=== PATIENT | male | born 1960 | race African-American/Black ===

== ENCOUNTER 2021-03-26 04:01 | Emergency (ER) | payer OTHER ==
[~2021-03-26] VITALS: Ht 170.2 cm; Wt 75.0 kg
--- NOTE | 2021-03-26 05:27 | ED.ADGEN ---
Past Medical History Additional Past Medical Histor: Hernia Past Surgical History: No Surgical History Smoking Status: Current Every Day Smoker Alcohol Use: Rarely Drug Use: Marijuana General Adult EDM: Chief Complaint: ABDOMINAL PAIN HPI: HPI: Patient is a 60 year old male presenting with right inguinal swelling and pain. Patient states going on for the past year or comes and goes out. Patient is concerned that it could be cancerous. Dates he has light heavy boxes at work. Was seen at yesterday and tested for Covid due to congestion. Review of Systems: Review of Systems: All other systems within normal limits except for as noted in the HPI Current Medications: Current Medications Medications (Trade) Dose Ordered Sig/Simba Start Time Stop Time Status Last Admin Dose Admin Info (CONTRAST GIVEN -- Rx MONITORING) 1 each PRN DAILY PRN 03/26/21 06:30 03/28/21 06:29 Iohexol (Omnipaque 300 Mg/ml) 75 ml 1X ONCE 03/26/21 06:30 03/26/21 06:31 DC 03/26/21 06:30 75 ML Allergies: Allergies: Allergies Coded Allergies Type Severity Reaction Last Updated Verified No Known Drug Allergies 07/29/13 No Physical Exam: PE: Constitutional: Well developed, well nourished, no acute distress, non-toxic appearance. [] HENT: Normocephalic, atraumatic, bilateral external ears normal, nose normal. [] Eyes: PERRLA, conjunctiva normal, no discharge. [] Neck: No rigidity, supple, no stridor. [] Cardiovascular: Regular rate and rhythm, brisk cap refill [] Lungs & Thorax: Non labored symmetric respirations, no tachypnea or respiratory distress [] Abdomen: Soft, nondistended, right inguinal mass, no surrounding erythema, nonreducible. Skin: Warm, dry, no erythema, no rash. [] Back: Unremarkable Extremities: No deformities, range of motion grossly intact, no lower extremity edema [] Neurologic: Alert and oriented X 3, no focal deficits noted. [] Psychologic: Affect normal, judgement normal, mood normal. [] Constitutional: Well developed, well nourished, no acute distress, non-toxic appearance HENT: Normocephalic, atraumatic Eyes: Conjunctiva normal, no discharge Neck: Normal range of motion, supple Lungs & Thorax: No respiratory distress, equal chest rise and fall Abdomen: Soft, no tenderness, right inguinal fullness noted Skin: Warm, dry, no erythema, no rash Extremities: No tenderness, ROM intact, no edema Neurologic: Alert and oriented X 3, no focal deficits noted Psychologic: Affect normal, judgment normal Current Patient Data: Labs: Laboratory Tests Test 03/26/21 05:50 White Blood Count 5.2 x10^3/uL (4.0-11.0) Red Blood Count 6.16 x10^6/uL (4.30-5.70) H Hemoglobin 13.4 g/dL (13.0-17.5) Hematocrit 43.0 % (39.0-53.0) Mean Corpuscular Volume 70 fL (79-100) L Mean Corpuscular Hemoglobin 22 pg (25-35) L Mean Corpuscular Hemoglobin Concent 31 g/dL (31-37) Red Cell Distribution Width 15.2 % (11.5-14.5) H Platelet Count 194 x10^3/uL (140-400) Neutrophils (%) (Auto) 57 % (31-73) Lymphocytes (%) (Auto) 27 % (24-48) Monocytes (%) (Auto) 12 % (0-9) H Eosinophils (%) (Auto) 4 % (0-3) H Basophils (%) (Auto) 0 % (0-3) Neutrophils # (Auto) 2.9 x10^3/uL (1.8-7.7) Lymphocytes # (Auto) 1.4 x10^3/uL (1.0-4.8) Monocytes # (Auto) 0.6 x10^3/uL (0.0-1.1) Eosinophils # (Auto) 0.2 x10^3/uL (0.0-0.7) Basophils # (Auto) 0.0 x10^3/uL (0.0-0.2) Platelet Estimate Pending Sodium Level 146 mmol/L (136-145) H Potassium Level 4.0 mmol/L (3.5-5.1) Chloride Level 111 mmol/L (98-107) H Carbon Dioxide Level 26 mmol/L (21-32) Anion Gap 9 (6-14) Blood Urea Nitrogen 17 mg/dL (8-26) Creatinine 0.8 mg/dL (0.7-1.3) Estimated GFR (Cockcroft-Gault) 119.7 BUN/Creatinine Ratio 21 (6-20) H Glucose Level 97 mg/dL (70-99) Lactic Acid Level 0.6 mmol/L (0.4-2.0) Calcium Level 8.6 mg/dL (8.5-10.1) Total Bilirubin 0.4 mg/dL (0.2-1.0) Aspartate Amino Transferase (AST) 16 U/L (15-37) Alanine Aminotransferase (ALT) 21 U/L (16-63) Alkaline Phosphatase 99 U/L (46-116) Total Protein 6.6 g/dL (6.4-8.2) Albumin 3.1 g/dL (3.4-5.0) L Albumin/Globulin Ratio 0.9 (1.0-1.7) L Laboratory Tests 03/26/21 05:50 Laboratory Tests 03/26/21 05:50 Vital Signs: Vital Signs Date Time Temp Pulse Resp B/P (MAP) Pulse Ox O2 Delivery O2 Flow Rate FiO2 03/26/21 05:20 98.6 60 22 134/75 (94) 98 Room Air 98.6 EKG: EKG: [] Heart Score: C/O Chest Pain: N/A Radiology/Procedures: Radiology/Procedures: PROCEDURE: CT ABD PELV W/ IV CONTRST ONLY CT ABDOMEN+PELVIS W History: right incarcerated hernia, non reducible Comparison: None. Technique: After administration of intravenous contrast, helical CT of the abdomen and pelvis was performed from the lung bases through the ischial tuberosities. Coronal and sagittal reconstructions were obtained. 75 mL of Omnipaque 300 were used. One or more of the following dose reduction techniques were utilized: Automated exposure control (AEC), Adjustment of mA and/or kV according to patient size, Use of iterative reconstruction technique such as ASiR, CT scan done according to ALARA and image gently/image wisely Abdomen Findings: The visualized lung bases are clear. The liver, gallbladder, pancreas, spleen, and bilateral adrenal glands are normal. Symmetric renal enhancement. There is no focal renal mass. There is no hy dronephrosis. The visualized loops of small bowel are normal. Colonic diverticulosis There is no evidence of bowel obstruction. Appendix is normal. There is no free fluid. There is no mesenteric or retroperitoneal adenopathy. The abdominal aorta is normal in caliber. Pelvis Findings: Urinary bladder is normal. Enlarged prostate measures 5 cm transverse and demonstrates somewhat heterogeneous enhancement. No pelvic free fluid. There is no pelvic or inguinal adenopathy. There is no acute bony abnormality. L2 coarse trabeculation with slight vertebral body enlargement and patchy sclerosis, suspect Paget's disease. Small fat-containing inguinal hernias. IMPRESSION: 1. Small fat-containing inguinal hernias. No bowel involvement. 2. Colonic diverticulosis. 3. Mild prostatomegaly with slightly heterogeneous enhancement. Clinical correlation is advised. Electronically signed by: Harsha Guerrero MD (03/26/2021 7:01 AM) [facility] Course & Med Decision Making: Course & Med Decision Making Pending labs and CT at shift change. [id number]-signout received from Dr. Tanner for further evaluation pending labs and CT report. Labs reviewed. CT abdomen/pelvis with notation of fat-containing inguinal hernia. Patient seen and evaluated by myself. Patient stable for discharge with outpatient follow-up with PCP/general surgery. General surgery referral provided. Discussed findings and plan with patient, who acknowledges understanding and agreement. Dragon Disclaimer: Knottykart Disclaimer: This electronic medical record was generated, in whole or in part, using a voice recognition dictation system. Departure Departure Impression: Primary Impression: Right inguinal hernia Disposition: HOME / SELF CARE / HOMELESS Condition: STABLE Referrals: YANET WATT MD Patient Instructions: Hernia Additional Instructions: Increase fluid hydration. Take yoxt-yeg-mzglyuk ibuprofen as needed for pain in addition to prescribed pain medication. Scripts Hydrocodone Bit/Acetaminophen (HYDROCODONE-APAP 5-325 ) 1 Tab Tablet 0.5-1 TAB PO PRN Q6HRS PRN for PAIN, #10 TAB 0 Refills Prov: SHELLY BENTLEY DO 03/26/21 DOTTIE TANNER MD Mar 26, 2021 05:27 SHELLY BENTLEY DO Mar 26, 2021 07:19
[2021-03-26 06:19] LABS: CALCIUM 8.6 mg/dL (8.5-10.1); CREATININE 0.8 mg/dL (0.7-1.3); GFR 119.7
[2021-03-26 06:25] LABS: ALBUMIN 3.1 g/dL (3.4-5.0); ALBUMIN/GLOBULIN RATIO 0.9 (1.0-1.7); TOTAL BILIRUBIN 0.4 mg/dL (0.2-1.0); TOTAL PROTEIN 6.6 g/dL (6.4-8.2)
[2021-03-26] MEDS ORDERED: CONTRAST GIVEN. MC PRN (06:30)
[2021-03-26] MEDS ORDERED: IOHEXOL 300 MG/ML 100ML VIAL. IV ONE (06:30)
[2021-03-26 06:44] LABS: BASO % 0 % (0-3); EOS # 0.2 x10^3/uL (0.0-0.7); EOS % 4 % (0-3); HEMOGLOBIN 13.4 g/dL (13.0-17.5); LYMPH # 1.4 x10^3/uL (1.0-4.8); LYMPH % 27 % (24-48); MEAN CORPUSCULAR HEMOGLOBIN 22 pg (25-35); MEAN CORPUSCULAR HGB CONC 31 g/dL (31-37); MEAN CORPUSCULAR VOLUME 70 fL (79-100); MONO # 0.6 x10^3/uL (0.0-1.1); MONO % 12 % (0-9); NEUT # 2.9 x10^3/uL (1.8-7.7); NEUT % 57 % (31-73); PLATELET COUNT 194 x10^3/uL (140-400); RED BLOOD COUNT 6.16 x10^6/uL (4.30-5.70); RED CELL DISTRIBUTION WIDTH 15.2 % (11.5-14.5); WHITE BLOOD COUNT 5.2 x10^3/uL (4.0-11.0)
--- NOTE | 2021-03-26 07:04 | RAD ---
CT ABDOMEN+PELVIS W History: right incarcerated hernia, non reducible Comparison: None. Technique: After administration of intravenous contrast, helical CT of the abdomen and pelvis was per formed from the lung bases through the ischial tuberosities. Coronal and sagittal reconstructions wer e obtained. 75 mL of Omnipaque 300 were used. One or more of the following dose reduction techniques were utilized: Automated exposure control (AEC), Adjustment of mA and/or kV according to patient size , Use of iterative reconstruction technique such as ASiR, CT scan done according to ALARA and image g ently/image wisely Abdomen Findings: The visualized lung bases are clear. The liver, gallbladder, pancreas, spleen, and bilateral adrenal glands are normal. Symmetric renal enhancement. There is no focal renal mass. There is no hydronephrosis. The visualized loops of small bowel are normal. Colonic diverticulosis There is no evidence of bowel obstruction. Appendix is normal. There is no free fluid. There is no mesenteric or retroperitoneal adenopathy. The abdominal aorta is normal in caliber. Pelvis Findings: Urinary bladder is normal. Enlarged prostate measures 5 cm transverse and demonstrates somewhat heter ogeneous enhancement. No pelvic free fluid. There is no pelvic or inguinal adenopathy. There is no acute bony abnormality. L2 coarse trabeculation with slight vertebral body enlargement an d patchy sclerosis, suspect Paget's disease. Small fat-containing inguinal hernias. IMPRESSION: 1. Small fat-containing inguinal hernias. No bowel involvement. 2. Colonic diverticulosis. 3. Mild prostatomegaly with slightly heterogeneous enhancement. Clinical correlation is advised. Electronically signed by: Harsha Guerrero MD (03/26/2021 7:01 AM) [facility]
[2021-03-26] MEDS ORDERED: HYDR-2761 PO (07:47)
[2021-03-26 08:03] VITALS: BP 129/71
[2021-03-26 10:18] LABS: HYPOCHROMIA MOD; PLT ESTIMATE ADEQUATE (ADEQUATE)
[2021-03-26 10:19] LABS: MICROCYTOSIS MARKED
[2021-03-26 10:24] LABS: ANISOCYTOSIS PRESENT
[2021-03-26 10:25] LABS: TARGET CELLS OCC
== END 2021-03-26 08:10 | disposition home or self-care (01) ==
LOC: ER 04:01
DX: K40.90 Unilateral inguinal hernia, without obstruction or gangrene, not specified as recurrent (principal); F17.200 Nicotine dependence, unspecified, uncomplicated
CPT/HCPCS: 36415; 74177; 80053; 83605; 85025; 99285; Q9967